=== PATIENT | female | born 1980 | race Caucasian/White ===

== ENCOUNTER 2019-07-15 18:37 | Emergency (ER) | payer MEDICAID ==
[~2019-07-15] VITALS: Ht 175.3 cm; Wt 75.0 kg
[2019-07-15 19:08] VITALS: Ht 175.3 cm; Wt 75.0 kg
[2019-07-15] MEDS ORDERED: NEURONTIN600 MG PO (19:09)
[2019-07-15 20:02] LABS: BILIRUBIN NEGATIVE (NEGATIVE); GLUCOSE NEGATIVE (NEGATIVE); KETONE NEGATIVE (NEGATIVE); NITRITE NEGATIVE (NEGATIVE); UROBILINOGEN NORMAL (NORMAL)
[2019-07-15 20:18] LABS: BASOPHILS 0.4 % (0-2); EOSINOPHILS 3.2 % (0-7); HEMATOCRIT 38.4 % (36.0-48.0); HEMOGLOBIN 13.1 g/dL (12-16); IMMATURE GRANULOCYTES 0.2 % (0-5); LYMPHOCYTES 30.6 % (15-50); MCH 30.6 pg (26.0-34.0); MCHC 34.1 g/dL (31.0-37.0); MCV 89.7 fL (80.0-100.0); MEAN PLATELET VOLUME 10.4 fL (7.4-10.4); MONOCYTES 12.2 % (2-11); NEUTROPHILS 53.4 % (40-80); PLATELET COUNT 230 10x3/uL (130-400); RBC 4.28 10x6/uL (4.00-5.40); WBC 5.6 10x3/uL (4.8-10.8)
[2019-07-15 20:21] LABS: HCG URINE NEGATIVE (NEGATIVE)
[2019-07-15 20:23] LABS: CALC OSMOLALITY 268 mosm/kg (275-300); CALCIUM 8.5 mg/dL (8.5-10.1); CARBON DIOXIDE 26.3 mmol/L (21.0-32.0); CHLORIDE - SERUM 103 mmol/L (98-107); CREATININE - SERUM 0.7 mg/dL (0.6-1.3); GLUCOSE 84 mg/dL (74-106); POTASSIUM - SERUM 4.3 mmol/L (3.5-5.1); SODIUM 135 mmol/L (136-145); UREA NITROGEN 13 mg/dL (7-18); eGFR NON AFRICAN AMERICAN > 90 mL/min (90-120)
[2019-07-15 20:35] LABS: ALBUMIN 3.5 g/dL (3.4-5.0); ALKALINE PHOSPHATASE 118 U/L (30-120); ALT (SGPT) 1049 U/L (10-68); BILIRUBIN - TOTAL 0.65 mg/dL (0.2-1.3); LIPASE 48 U/L (73-393); PROTEIN - SERUM 8.3 g/dL (6.4-8.2)
[2019-07-15] MEDS ORDERED: ZOFRAN ODT4 MG/UDTAB PO (21:35)
[2019-07-15] MEDS ORDERED: BENTYL 20 MG TA20 MG PO (21:35)
[2019-07-15 22:06] LABS: APTT 31.2 SECONDS (22.8-39.4); INR 1.09 (0.85-1.17); PROTIME 14.1 SECONDS (11.6-15.0)
[2019-07-15 22:32] VITALS: BP 136/78
== END 2019-07-15 22:32 | disposition home or self-care (01) ==
LOC: D.ER 18:37
PROVIDERS: Family Medicine
DX: R11.2 Nausea with vomiting, unspecified (principal); Z86.19 Personal history of other infectious and parasitic diseases; R74.8 Abnormal levels of other serum enzymes; R10.30 Lower abdominal pain, unspecified; R19.7 Diarrhea, unspecified

== ENCOUNTER 2019-07-22 11:05 | Emergency (ER) | payer MEDICAID ==
[~2019-07-22] VITALS: Ht 175.3 cm; Wt 77.3 kg
[~2019-07-22 11:05] MED LIST: BENTYL 20 MG TA20 MG PO; NEURONTIN600 MG PO; ZOFRAN ODT4 MG/UDTAB PO
[2019-07-22 11:09] VITALS: Ht 175.3 cm; Wt 77.3 kg
[2019-07-22] MEDS ORDERED: VIBRAMYCIN 100100 MG PO (14:08)
[2019-07-22] MEDS ORDERED: ZOFRAN ODT4 MG/UDTAB PO (14:08)
[2019-07-22 15:29] VITALS: BP 101/52
== END 2019-07-22 15:07 | disposition home or self-care (01) ==
LOC: D.ER 11:05
DX: N73.9 Female pelvic inflammatory disease, unspecified (principal); N72 Inflammatory disease of cervix uteri; R10.30 Lower abdominal pain, unspecified; N89.8 Other specified noninflammatory disorders of vagina; R11.0 Nausea; R30.0 Dysuria

== ENCOUNTER 2019-09-28 01:16 | Inpatient (IN) | payer MEDICAID ==
[2019-09-28] VITALS (13 sets, daily range): BP systolic 111–169; BP diastolic 51–86; Ht 175.3 cm; Wt 63.5 kg
[~2019-09-28] VITALS: Ht 175.3 cm; Wt 63.5 kg
[~2019-09-28 01:16] MED LIST changes: +VIBRAMYCIN 100100 MG PO
[2019-09-28 03:54] LABS: BASOPHILS 0.2 % (0-2); HEMOGLOBIN 11.4 g/dL (12-16); IMMATURE GRANULOCYTES 0.2 % (0-5); MCH 30.7 pg (26.0-34.0); MCHC 33.5 g/dL (31.0-37.0); MCV 91.6 fL (80.0-100.0); MEAN PLATELET VOLUME 10.4 fL (7.4-10.4); NEUTROPHILS 76.6 % (40-80); PLATELET COUNT 137 10x3/uL (130-400); RBC 3.71 10x6/uL (4.00-5.40); RDW 14.8 % (11.5-14.5); WBC 4.9 10x3/uL (4.8-10.8)
[2019-09-28 04:06] LABS: CALC OSMOLALITY 276 mosm/kg (275-300); CALCIUM 7.4 mg/dL (8.5-10.1); CARBON DIOXIDE 27.7 mmol/L (21.0-32.0); CHLORIDE - SERUM 103 mmol/L (98-107); CREATININE - SERUM 0.7 mg/dL (0.6-1.3); GLUCOSE 119 mg/dL (74-106); POTASSIUM - SERUM 3.7 mmol/L (3.5-5.1); SODIUM 138 mmol/L (136-145); UREA NITROGEN 13 mg/dL (7-18); eGFR NON AFRICAN AMERICAN > 90 mL/min (90-120)
[2019-09-28 04:11] LABS: ALKALINE PHOSPHATASE 75 U/L (30-120); ALT (SGPT) 221 U/L (10-68); BILIRUBIN - TOTAL 0.59 mg/dL (0.2-1.3); PROTEIN - SERUM 7.8 g/dL (6.4-8.2)
[2019-09-28 05:01] LABS: HCG URINE NEGATIVE (NEGATIVE)
[2019-09-28 05:16] LABS: BILIRUBIN NEGATIVE (NEGATIVE); GLUCOSE NEGATIVE (NEGATIVE); KETONE NEGATIVE (NEGATIVE); NITRITE NEGATIVE (NEGATIVE); UROBILINOGEN NORMAL (NORMAL)
[2019-09-28 05:17] LABS: BACTERIA FEW /hpf (NEGATIVE); EPITHELIAL CELLS 0-5 /hpf (0-5); RED CELLS - URINE 0-5 /hpf (0-5); WHITE CELLS - URINE 0-5 /hpf (NEGATIVE)
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
--- NOTE | 2019-09-28 09:15 | NUR ---
PT LAYING IN BED, EYES CLOSED, EVEN RESPIRATIONS. PIV IN LEFT FOOT, PATENT, NO REDNESS OR SWELLING. PLACED TELEMETRY ON PT, 74 SR. LACERATIONS ON FOREHEAD AND ON HAIRLINE. BRUISES ON LEFT SHOULDER. ABDUCTION PILLOW IN PLACE BETWEEN LEGS. BED LOW, RAILS X2. CL IN REACH. WILL CONTINUE TO MONITOR.
--- NOTE | 2019-09-28 10:19 | NUR ---
PT A&O X4. PT ABLE TO EAT SOME OF MEAL. DENIES PAIN. PT ASKED ABOUT WHAT HAPPENED, EDUCATED PT ON CURRENT SITUATION. EDUCATED PT ON HOW TO ADJUST BED, CL AND NEEDS, PT VERBALIZED UNDERSTANDING. BED LOW, RAILS X2. CL IN REACH.
--- NOTE | 2019-09-28 12:41 | NUR ---
PT C/O PAIN 09/25, ADMIN PAIN MEDS PER ORDER. BED LOW, CL IN REACH.
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
--- NOTE | 2019-09-28 20:00 | NUR ---
RESTIGN IN BED EYES CLOSED, AROUSED EASILY C/O PAIN TO RIGHT HIP WITH ANY MOVEMENT, ABD PILLOW IN PLACE, SEE SHIFT ASSESSMENT, CALL LIGHT IN REACH
--- NOTE | 2019-09-28 21:15 | NUR ---
NORCO GIVEN FOR PAC/O PAIN TO RIGHT HIP
--- NOTE | 2019-09-28 23:20 | NUR ---
PT CRYING LOUDLY AND TALKING WITH MOTHER ON PHONE SAYING THAT NURSES WOULD NOT GIVE HER ANY PAIN MEDICATION HELP HER TURN, FILM PAINTER HAS BEEN IN ROOM MULTIPLE TIMES TO ASSIST WITH BEDPAN AND REPOSITIONED AND INFORMED MOTHER THAT HYDROCODONE WAS GIVEN 2 HRS AGO, PT STATES THAT THATS NOT GOING TO CONTROL HER PAIN BOTH PT AND MOTHER INSISTING THAT DR BE CALLED FOR MORE PAIN MEDICATION,DR WEBER CALLED ORDERS RECIEVED FOR TORDOL 60MG IM Q 6 HRS PRN PT INFORMED WILL GIVEN SOON AVAILABLE
--- NOTE | 2019-09-28 23:35 | NUR ---
GABI GIVEN IM ORDERED, PT NOW MUCH CALMER, STATES THAT SHE HAS BEEN USING HEROIN AND FENTAL AND HAS BEEN TO REHAB FOR THAT A COUPLE OF TIMES
[2019-09-29 05:39] VITALS: BP 109/63
[2019-09-29 07:32] VITALS: BP 106/61
--- NOTE | 2019-09-29 09:03 | NUR ---
PT LAYING IN BED, EYES CLOSED, EVEN RESPIRATIONS. BRUISES ON RIGHT SHOULDER. ABRASIONS ON FOREHEAD AND HAIRLINE. TELEMETRY IN PLACE, 89 SR. EDUCATED SPOUSE ON GOAL OF AMBULATING WITH PT TODAY. EDUCATED ON CL AND NEEDS. BED LOW, CL IN REACH. WILL CONTINUE TO MONITOR.
--- NOTE | 2019-09-29 09:26 | NUR ---
C/O PAIN 09/25, PROVIDED PAIN MEDS PER ORDER. REMOVED ABDUCTION PILLOW. EDUCATED PT ABOUT AMBULATING WITH PHYSICAL THERAPY, VERBALIZED UNDERSTANDING. BED LOW, RAILS X2. CL IN REACH. WILL CONTINUE TO MONITOR.
[2019-09-29 10:44] LABS: BASOPHILS 0.1 % (0-2); EOSINOPHILS 1.5 % (0-7); HEMATOCRIT 34.1 % (36.0-48.0); HEMOGLOBIN 11.4 g/dL (12-16); IMMATURE GRANULOCYTES 0.2 % (0-5); LYMPHOCYTES 18.8 % (15-50); MCH 31.1 pg (26.0-34.0); MCHC 33.4 g/dL (31.0-37.0); MCV 92.9 fL (80.0-100.0); MEAN PLATELET VOLUME 10.7 fL (7.4-10.4); MONOCYTES 8.7 % (2-11); NEUTROPHILS 70.7 % (40-80); PLATELET COUNT 112 10x3/uL (130-400); RBC 3.67 10x6/uL (4.00-5.40); RDW 15.1 % (11.5-14.5); WBC 9.7 10x3/uL (4.8-10.8)
[2019-09-29 10:49] LABS: CALC OSMOLALITY 277 mosm/kg (275-300); CALCIUM 7.7 mg/dL (8.5-10.1); CARBON DIOXIDE 28.6 mmol/L (21.0-32.0); CHLORIDE - SERUM 106 mmol/L (98-107); CREATININE - SERUM 0.6 mg/dL (0.6-1.3); GLUCOSE 83 mg/dL (74-106); POTASSIUM - SERUM 3.6 mmol/L (3.5-5.1); SODIUM 139 mmol/L (136-145); UREA NITROGEN 16 mg/dL (7-18); eGFR NON AFRICAN AMERICAN > 90 mL/min (90-120)
[2019-09-29 12:00] VITALS: BP 111/63
--- NOTE | 2019-09-29 14:35 | MORECARE ---
CASE MANAGEMENT DISCHARGE SUMMARY PATIENT: JHON CAIN UNIT: [id number] ADM DATE: 09/28/19 AGE: 39 : 82 SEX: F ROOM/BED: D.1208 AUTHOR: DONNA LEMUS PHYSICIAN: REFERRING PHYSICIAN: FRIDA FAJARDO MD DATE OF SERVICE: 09/29/19 Discharge Plan Patient Name: JHON CAIN Facility: [facility]:[place] : 1980 Planned Disposition: Home Anticipated Discharge Date: Discharge Date: Expected LOS: Initial Reviewer: [email or web address] Initial Review Date: 09/28/2019 Generated: 09/29/19 3:34 pm Comments DCP- Discharge Planning Updated by [email or web address]: Jacqueline Person on 09/29/19 1:[address] Patient Name: JHON CAIN Admission Status: ER Accout number: [id number] Admission Date: 09-28-2019 : 1980 Admission Diagnosis: Attending: FRIDA FAJARDO Current LOS: 1 Anticipated DC Date: Planned Disposition: Home Primary Insurance: MEDICAID [place] Discharge Planning Comments: LATE ENTRY 09/28/19 @ 1400 CM MET WITH PATIENT TO ASSESS DSICHARGE PLANNING NEEDS. PATIENT STATED THAT SHE IS INDEPENDENT WITH HER CARE AT HOME BEFORE THIS HAPPENEND. SHE LIVES WITH HER , BUT THERE ARE 20 STEPS TO GET TO HER HOME. SHE TOLD THE MD THAT SHE WAS GOING TO STAY WITH HER MOTHER WHILE SHE RECOVERS. SHE WILL NEED A WALKER AND I WILL ORDER ONE FOR HER BEFORE SHE DISCHARGES. CM TO FOLLOW AND ASSIST NEEDED Learning And Development Specialist: Jacqueline Person DCPIA - Discharge Planning Initial Assessment Updated by [email or web address]: Jacqueline Person on 09/29/19 2:31 pm * Is the patient Alert and Oriented? Yes * How many steps to enter\exit or inside your home? 20 * PCP DR JOVANNY SHIN IN [place] * Pharmacy [facility] [address] * Preadmission Environment Home with Family * ADLs Independent * List name and contact numbers for known caregivers / representatives who currently or will assist patient after discharge: FÉLIX ( SPOUSE) [phone] * Verbal permission to speak to the caregivers and representatives has been obtained from the patient. N/A * Community resources currently utilized None * Additional services required to return to the preadmission environment? Yes * Can the patient safely return to the preadmission environment? Yes * Has this patient been hospitalized within the prior 30 days at any hospital? No Patient Name: JHON CAIN Page 74911 at 1435 All edits/amendments must be made on the electronic document DICTATION DATE: 09/29/191433 EXAMINER OF CURRENCY: ARUNA 09/29/191433 RPT#: [id number] DC DATE: STATUS: ADM IN [facility] [address] [place] [address] END OF REPORT
--- NOTE | 2019-09-29 14:42 | MORECARE ---
CASE MANAGEMENT DISCHARGE SUMMARY PATIENT: JHON CAIN UNIT: [id number] ADM DATE: 09/28/19 AGE: 39 : 82 SEX: F ROOM/BED: D.1208 AUTHOR: DONNA LEMUS PHYSICIAN: REFERRING PHYSICIAN: FRIDA FAJARDO MD DATE OF SERVICE: 09/29/19 Discharge Plan Patient Name: JHON CAIN Facility: [facility]:[place] : 1980 Planned Disposition: Home Anticipated Discharge Date: Discharge Date: Expected LOS: Initial Reviewer: [email or web address] Initial Review Date: 09/28/2019 Generated: 09/29/19 3:41 pm Comments DCP- Discharge Planning Updated by [email or web address]: Jacqueline Person on 09/29/19 1:[address] WALKER ORDER AND SENT TO [facility] DCP- Discharge Planning Updated by [email or web address]: Jacqueline Person on 09/29/19 1:[address] PATIENT'S CELL NUMBER [phone] DCP- Discharge Planning Updated by [email or web address]: Jacqueline Person on 09/29/19 1:[address] Patient Name: JHON CAIN Admission Status: ER Accout number: [id number] Admission Date: 09-28-2019 : 1980 Admission Diagnosis: Attending: FRIDA FAJARDO Current LOS: 1 Anticipated DC Date: Planned Disposition: Home Primary Insurance: MEDICAID [place] Discharge Planning Comments: LATE ENTRY 09/28/19 @ 1400 CM MET WITH PATIENT TO ASSESS DSICHARGE PLANNING NEEDS. PATIENT STATED THAT SHE IS INDEPENDENT WITH HER CARE AT HOME BEFORE THIS HAPPENEND. SHE LIVES WITH HER , BUT THERE ARE 20 STEPS TO GET TO HER HOME. SHE TOLD THE MD THAT SHE WAS GOING TO STAY WITH HER MOTHER WHILE SHE RECOVERS. SHE WILL NEED A WALKER AND I WILL ORDER ONE FOR HER BEFORE SHE DISCHARGES. CM TO FOLLOW AND ASSIST NEEDED Vp Outcomes: Jacqueline Person DCPIA - Discharge Planning Initial Assessment Updated by [email or web address]: Jacqueline Person on 09/29/19 2:31 pm * Is the patient Alert and Oriented? Yes * How many steps to enter\exit or inside your home? 20 * PCP DR JOVANNY SHIN IN [place] * Pharmacy [facility] [address] * Preadmission Environment Home with Family * ADLs Independent * List name and contact numbers for known caregivers / representatives who currently or will assist patient after discharge: FÉLIX ( SPOUSE) [phone] * Verbal permission to speak to the caregivers and representatives has been obtained from the patient. N/A * Community resources currently utilized None * Additional services required to return to the preadmission environment? Yes * Can the patient safely return to the preadmission environment? Yes * Has this patient been hospitalized within the prior 30 days at any hospital? No External Providers External Provider: [facility] Next Contact Date: Service Request Date: Service Type: Resolution: Reviewer: Comments: Last DP export: 09/29/19 1:35 p Patient Name: JHON CAIN Page 09075 at 1442 All edits/amendments must be made on the electronic document DICTATION DATE: 09/29/191440 CENTRIFUGAL SEPARATOR: ARUNA 09/29/191440 RPT#: [id number] DC DATE: STATUS: ADM IN [facility] [address] [place] [address] END OF REPORT
[2019-09-29 16:40] VITALS: BP 108/57
[2019-09-29 20:00] VITALS: BP 104/63
--- NOTE | 2019-09-29 20:00 | NUR ---
RESTING IN BED EYES CLOSED RESP UNLABORED, NO APPARENT DISTRESS, TEL IN PLACE
[2019-09-30 04:00] VITALS: BP 113/68
--- NOTE | 2019-09-30 07:30 | NUR ---
RESTING QUIETLY WITH EYES CLOSED. DENIES NEEDS.
[2019-09-30 07:31] VITALS: BP 110/73
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
[2019-09-30] MEDS ORDERED: VISTARIL50 MG PO (11:17)
[2019-09-30] MEDS ORDERED: ULTRAM50 MG PO (11:18)
[2019-09-30] MEDS ORDERED: BAYER CHEWABLE81 MG PO (11:18)
[2019-09-30 11:41] VITALS: BP 117/50
--- NOTE | 2019-09-30 13:00 | NUR ---
ATE MOST OF LUNCH. DENIES NEEDS.
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
--- NOTE | 2019-09-30 15:13 | MORECARE ---
CASE MANAGEMENT DISCHARGE SUMMARY PATIENT: JHON CAIN UNIT: [id number] ADM DATE: 09/28/19 AGE: 39 : [birth year] SEX: F ROOM/BED: D.1208 AUTHOR: DONNA LEMUS PHYSICIAN: REFERRING PHYSICIAN: FRIDA FAJARDO MD DATE OF SERVICE: 09/30/19 Discharge Plan Patient Name: JHON CAIN Facility: [facility]:[place] : 1980 Planned Disposition: Home Anticipated Discharge Date: Discharge Date: Expected LOS: Initial Reviewer: [email or web address] Initial Review Date: 09/28/2019 Generated: 09/30/19 4:12 pm DCP- Discharge Planning Updated by [email or web address]: Jacqueline Person on 09/29/19 1:[address] WALKER ORDER AND SENT TO [facility] DCP- Discharge Planning Updated by [email or web address]: Jacqueline Person on 09/29/19 1:[address] PATIENT'S CELL NUMBER [phone] DCP- Discharge Planning Updated by [email or web address]: Jacqueline Person on 09/29/19 1:[address] Patient Name: JHON CAIN Admission Status: ER Accout number: [id number] Admission Date: 09-28-2019 : 1980 Admission Diagnosis: Attending: FRIDA FAJARDO Current LOS: 1 Anticipated DC Date: Planned Disposition: Home Primary Insurance: MEDICAID [place] Discharge Planning Comments: LATE ENTRY 09/28/19 @ 1400 CM MET WITH PATIENT TO ASSESS DSICHARGE PLANNING NEEDS. PATIENT STATED THAT SHE IS INDEPENDENT WITH HER CARE AT HOME BEFORE THIS HAPPENEND. SHE LIVES WITH HER , BUT THERE ARE 20 STEPS TO GET TO HER HOME. SHE TOLD THE MD THAT SHE WAS GOING TO STAY WITH HER MOTHER WHILE SHE RECOVERS. SHE WILL NEED A WALKER AND I WILL ORDER ONE FOR HER BEFORE SHE DISCHARGES. CM TO FOLLOW AND ASSIST NEEDED Renovator Machine Operator: Jacqueline Person DCPIA - Discharge Planning Initial Assessment Updated by [email or web address]: Jacqueline Person on 09/29/19 2:31 pm * Is the patient Alert and Oriented? Yes * How many steps to enter\exit or inside your home? 20 * PCP DR JOVANNY SHIN IN [place] * Pharmacy [facility] [address] * Preadmission Environment Home with Family * ADLs Independent * List name and contact numbers for known caregivers / representatives who currently or will assist patient after discharge: FÉLIX ( SPOUSE) [phone] * Verbal permission to speak to the caregivers and representatives has been obtained from the patient. N/A * Community resources currently utilized None * Additional services required to return to the preadmission environment? Yes * Can the patient safely return to the preadmission environment? Yes * Has this patient been hospitalized within the prior 30 days at any hospital? No External Providers External Provider: [facility] Next Contact Date: Service Request Date: Service Type: Resolution: Reviewer: Comments: Last DP export: 09/29/19 1:42 p Patient Name: JHON CAIN Page [phone] at 1513 All edits/amendments must be made on the electronic document DICTATION DATE: 09/30/191511 DOCK OPERATOR: ARUNA 09/30/191511 RPT#: [id number] DC DATE: STATUS: ADM IN [facility] [address] [place] [address] END OF REPORT
--- NOTE | 2019-09-30 15:23 | MORECARE ---
CASE MANAGEMENT DISCHARGE SUMMARY PATIENT: JHON CAIN UNIT: [id number] ADM DATE: 09/28/19 AGE: 39 : [birth year] SEX: F ROOM/BED: D.1208 AUTHOR: DONNA LEMUS PHYSICIAN: REFERRING PHYSICIAN: FRIDA FAJARDO MD DATE OF SERVICE: 09/30/19 Discharge Plan Patient Name: JHON CAIN Facility: [facility]:[place] : 1980 Planned Disposition: Home Anticipated Discharge Date: Discharge Date: Expected LOS: Initial Reviewer: [email or web address] Initial Review Date: 09/28/2019 Generated: 09/30/19 4:22 pm Comments DCP- Discharge Planning Updated by [email or web address]: Jacqueline Person on 09/30/19 2:[address] PATIENT DISCHARGING HOME WITH HOME HEALTH, HER MOTHER WOULD LIKE [facility] IN [place]. THE PATIENT WILL BE DISCHARGING TO [address] [place] [address] IN [facility]. I CALLED AND SPOKE WITH NIA AT THE [place] OFFICE [phone] I ALSO SPOKE WITH RIGOBERTO WITH [facility] ([phone]) I HAVE EXPLAINED ALL OF THIS TO MERYL THE PATIENTS NURSE, THE PATIENT HAS A WALKER AT THE BEDSIDE DCP- Discharge Planning Updated by [email or web address]: Jacqueline Person on 09/29/19 1:[address] WALKER ORDER AND SENT TO [place] DCP- Discharge Planning Updated by [email or web address]: Jacqueline Person on 09/29/19 1:[address] PATIENT'S CELL NUMBER [phone] DCP- Discharge Planning Updated by [email or web address]: Jacqueline Person on 09/29/19 1:[address] Patient Name: JHON CAIN Admission Status: ER Accout number: [id number] Admission Date: 09-28-2019 : 1980 Admission Diagnosis: Attending: FRIDA FAJARDO Current LOS: 1 Anticipated DC Date: Planned Disposition: Home Primary Insurance: MEDICAID [place] Discharge Planning Comments: LATE ENTRY 09/28/19 @ 1400 CM MET WITH PATIENT TO ASSESS DSICHARGE PLANNING NEEDS. PATIENT STATED THAT SHE IS INDEPENDENT WITH HER CARE AT HOME BEFORE THIS HAPPENEND. SHE LIVES WITH HER , BUT THERE ARE 20 STEPS TO GET TO HER HOME. SHE TOLD THE MD THAT SHE WAS GOING TO STAY WITH HER MOTHER WHILE SHE RECOVERS. SHE WILL NEED A WALKER AND I WILL ORDER ONE FOR HER BEFORE SHE DISCHARGES. CM TO FOLLOW AND ASSIST NEEDED Template Reproduction Technician: Jacqueline Person DCPIA - Discharge Planning Initial Assessment Updated by [email or web address]: Jacuqeline Person on 09/29/19 2:31 pm * Is the patient Alert and Oriented? Yes * How many steps to enter\exit or inside your home? 20 * PCP DR JOVANNY SHIN IN [place] * Pharmacy [facility] [address] * Preadmission Environment Home with Family * ADLs Independent * List name and contact numbers for known caregivers / representatives who currently or will assist patient after discharge: FÉLIX ( SPOUSE) [phone] * Verbal permission to speak to the caregivers and representatives has been obtained from the patient. N/A * Community resources currently utilized None * Additional services required to return to the preadmission environment? Yes * Can the patient safely return to the preadmission environment? Yes * Has this patient been hospitalized within the prior 30 days at any hospital? No Last DP export: 09/30/19 2:12 p Patient Name: JHON CAIN Page 06462 at 1523 All edits/amendments must be made on the electronic document DICTATION DATE: 09/30/191521 ENERGY EFFICIENCY SPECIALIST: ARUNA 09/30/191521 RPT#: [id number] DC DATE: STATUS: ADM IN [facility] [address] [place] [address] END OF REPORT
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
--- NOTE | 2019-09-30 16:12 | NUR ---
DISCHARGED TO HOME AMBULATORY WITH FAMILY. DISCHARGE INSTRUCTIONS GIVEN BOTH VERBALLY AND WRITTEN. ALL QUESTIONS ANSWERED. PATIENT VERBALIZED UNDERSTANDING OF SAME. ALL BELONGINGS WITH PATIENT. NEEDED PRESCRIPTIONS GIVEN TO PATIENT.
== END 2019-09-30 16:14 | disposition home or self-care (01) | DRG 537 ==
LOC: D.ER 01:16 → D.M3 04:10 → OBSVTIME 15:00 → D.M3 16:47
PROVIDERS: Family Medicine; ADMIT Family Medicine; ATTEND Family Medicine
PROC: 0SS9XZZ Reposition Right Hip Joint, External Approach (ICD-10-PCS; principal; 2019-09-28)
DX: S73.004A Unspecified dislocation of right hip, initial encounter (principal); M87.9 Osteonecrosis, unspecified; V49.9XXA Car occupant (driver) (passenger) injured in unspecified traffic accident, initial encounter; F17.200 Nicotine dependence, unspecified, uncomplicated; S01.81XA Laceration without foreign body of other part of head, initial encounter